=== PATIENT | female | born 1960 | race Two or more races ===

== ENCOUNTER 2017-06-09 08:40 | Emergency (ER) | payer OTHER ==
[2017-06-09 08:46] VITALS: BP 145/104
[2017-06-09] MEDS ORDERED: IBUPROFEN 600 MG TAB PO ONE (08:50)
--- NOTE | 2017-06-09 08:55 | EDPHY ---
H & P Stated Complaint: [place]ati "pop' to left knee last night while dancing. Time Seen by Provider: 06/09/17 08:54 HPI/ROS: HPI: This is a 57-year-old female who presents with Chief Complaint: [place]ati "pop' to left knee last night while dancing. Location: Left knee Quality: Injury Duration: Last night Signs and Symptoms: No bleeding, no radiation, no numbness, no weakness, no tingling, no incontinence, no decreased range of motion, no swelling, no pain, no fever Timing:acute, constant, worse with movement Severity: 09/03 Context: Patient reports that she had a history of Stubbs cyst as well with what appears to be a meniscus tear status post arthroscopy greater than 10 years ago presents to the emergency room with complaints of left lateral knee injury last night while dancing. She reports that while she was dancing she felt a pop while twisting her lower leg. Patient reports that she has seen Dr. Jamison earlier this year regarding chronic knee pain. It was recommended at that time that she had repeat arthroscopy. She is unsure of the exact diagnosis but believes that she has continued ACL or meniscus derangement. Patient reports that her knee is swollen with decreased range of motion. Pain is described as constant, moderate intensity, nonradiating. Worse with flexion. Denies paresthesias/weakness. Modifying Factors: [id number] pain medications, mild relief Comment: ROS: see HPI Constitutional: No fever, no chills, no weight loss Eyes: No blurred vision Respiratory: No shortness of breath, no cough Cardiovascular: No chest pain Gastrointestinal: No nausea, no vomiting no diarrhea Genitourinary: No dysuria Extremities: No myalgias Neurologic: No weakness, no numbness Skin: No rashes Hematologic: No bruising, no bleeding MEDICAL/SURGICAL/SOCIAL HISTORY: Medical/surgical history: Multiple skin allergies, , left knee, cholecystectomy, hernia repair, hypertension Social history: CONSTITUTIONAL: Extremely pleasant but uncomfortable adult female, at bedside, awake and alert, no obvious distress HEENT: Atraumatic and normocephalic. NECK: supple, no midline tenderness Cardiovascular: Normal S1/S2, regular rate, regular rhythm, without murmur rub or gallop. PULMONARY/CHEST: Symmetrical and nontender. no crepitus. Clear to auscultation bilaterally. Good air movement. No accessory muscle usage. ABDOMEN: Soft, nondistended, nontender, no ecchymosis. EXTREMITIES: 2/2 pulses, strength 5/5, left KNEE: Jsqn-dl-ksavqmkl suprapatellar effusion, no medial joint line tenderness, moderate lateral joint line tenderness medial and lateral joint line tenderness, extension to 120, flexion to 80. Moderate pain with valgus exam. Mild pain with varus exam. Moderate pain with anterior drawer or posterior drawer test. good light touch sensation. no deformities, no clubbing, no cyanosis or edema. NEUROLOGICAL: no focal neuro deficits. GCS 15. Light touch sensation intact. SKIN: Warm and dry, no erythema. no rash. Good capillary refill. Source: Patient Exam Limitations: No limitations - Personal History Current Tetanus Diphtheria and Acellular Pertussis (TDAP): Yes - Medical/Surgical History Hx Asthma: No Hx Chronic Respiratory Disease: No Hx Diabetes: No Hx Cardiac Disease: No Hx Renal Disease: No Hx Cirrhosis: No Hx Alcoholism: No Hx HIV/AIDS: No Hx Splenectomy or Spleen Trauma: No Other PMH: Multipal skin allergies, , left knee, cholecystectomy, hernia repair, HTN - Social History Smoking Status: Former smoker Constitutional: Initial Vital Signs Temperature (C) 36.6 C 06/09/17 08:40 Heart Rate 78 06/09/17 08:40 Respiratory Rate 18 06/09/17 08:40 Blood Pressure 145/104 H 06/09/17 08:40 O2 Sat (%) 98 06/09/17 08:40 O2 Delivery Mode Room Air Allergies/Adverse Reactions: penicillin G [Penicillin G] Allergy (Unknown, Verified 12/23/09 18:48) Rash tetracycline [Tetracycline] Allergy (Unknown, Verified 12/23/09 18:48) Rash Home Medications: Medication Instructions Recorded oxyCODONE/APAP 5/325 [Percocet 1 - 2 tab PO Q4H PRN #10 tab 06/09/17 5/325 (*)] Medical Decision Making - Diagnostics Imaging Results: Imaging Impressions Knee X-Ray 06/09/17 08:50 Impression: Mild degenerative changes with a small joint effusion, but no acute osseous abnormality. If there is further clinical concern regarding the patient's symptoms, MR imaging could be scheduled. Procedures: Procedure: Splint placement. A left knee immobilizer was applied by the Emergency Room freezer laboratory technician. After application of the splint I returned and re-examined the patient. The splint was adequately immobilizing the joint and distal to the splint the patient's circulation and sensation was intact. ED Course/Re-evaluation: Patient given ibuprofen and Percocet upon arrival with adequate relief of pain No signs of neurovascular compromise/tenting of skin/compartment syndrome/ extremities and joints examined above and below area of concern and are neurovascularly intact/septic arthritis/gouty arthropathy. Knee x-ray my read via PACs; joint space narrowing; mild degenerative changes; no fracture Left knee x-ray ordered; suspect internal derangement and will need MRI outpatient with orthopedic follow-up Placed in knee immobilizer and given crutches; toe-touch weight-bearing status to start This patient was seen under the supervision of my secondary supervising physician. I evaluated care for this patient independently. Discussed this patient with Dr. Rivero who did not see the patient. Differential Diagnosis: Knee injury while [] including but not limited to fracture, ACL injury, contusion, muscular strain, and meniscus injury. - Data Points Medications Given: Discontinued Medications Ibuprofen (Motrin) 600 mg PO EDNOW ONE Stop: 06/09/17 08:51 Last Admin: 06/09/17 08:54 Dose: 600 mg Oxycodone/Acetaminophen (Percocet 5/325) 1 tab PO EDNOW ONE Stop: 06/09/17 09:00 Last Admin: 06/09/17 09:05 Dose: 1 tab Departure - Departure Disposition: Home, Routine, Self-Care Clinical Impression: Internal derangement of left knee Condition: Good Instructions: Knee Sprain (ED), Knee Immobilizer (ED), R.I.C.E. Treatment (ED) Additional Instructions: Wear the knee immobilizer while out of bed. Use crutches to aid ambulation; start with toe-touch weight-bearing status on left lower extremity. Take Tylenol 650 mg every 4 hours and/or Ibuprofen 600 mg every 8 hours with food as needed for pain. Use Percocet every 6 hours as needed for severe/break through pain. Do not use Tylenol and Percocet concomitantly. Apply ice for 30 minutes at a time; 2-3 times per day for the next 1-2 days. Follow up with Orthopedics in 5-7 days at which time they will evaluate and recommend with you if conservative management versus further imaging with MRI versus surgery is indicated. Return to the ER immediately if you experience new or worsening pain, discoloration, numbness, tingling, or any other symptoms that concern you. Referrals: Tarun Jamison MD [Primary Care Provider] - As per Instructions Stand Alone Forms: Work Excuse Prescriptions: oxyCODONE/APAP 5/325 [Percocet 5/325 (*)] 1 - 2 tab PO Q4H PRN #10 tab PRN Reason: Pain, Severe
[2017-06-09] MEDS ORDERED: OXYCODONE/APAP 5/325 TAB PO ONE (08:59)
== END 2017-06-09 09:30 | disposition home or self-care (01) ==
DX: M23.92 Unspecified internal derangement of left knee (principal); I10 Essential (primary) hypertension; Z87.891 Personal history of nicotine dependence; X50.9XXA Other and unspecified overexertion or strenuous movements or postures, initial encounter; Y99.8 Other external cause status; Y93.41 Activity, dancing
CPT/HCPCS: L1830

== ENCOUNTER 2017-11-05 12:52 | Emergency (ER) | payer MEDICAID, OTHER ==
[2017-11-05] MEDS ORDERED: methylPREDNISolone SOD SUCC 125 MG/2 ML VIAL IVP ONE (13:10)
[2017-11-05] MEDS ORDERED: RANITIDINE 50 MG/2 ML VIAL IVP ONE (13:10)
--- NOTE | 2017-11-05 13:10 | EDPHY ---
General - History Smoking Status: Former smoker Time Seen by Provider: 11/05/17 13:05 Narrative: CHIEF COMPLAINT: Allergic reaction HISTORY OF PRESENT ILLNESS: Patient presents by private vehicle with complaints of allergic reaction. She states that "a wasp or something" stung her on the left forearm. This happened within the past hour. Location is the left forearm, anterolaterally. She notes some pain, redness and swelling. It has increased. She is not taking medication for this. She is concerned because she has been stung by a wasp in the past, with moderate reaction. She does have some tingling of the tongue. No swelling of the lips or tongue. No difficulty breathing. No drooling. No chest pain or shortness of breath. The area on the form has increased in size since the innoculation. No other associated complaints or modifying factors. REVIEW OF SYSTEMS: 10 systems were reviewed and negative with the exception of the elements mentioned in the history of present illness. PCP: None SPECIALISTS: None PAST MEDICAL HISTORY: "Multiple allergies,"the hypertension PAST SURGICAL HISTORY: Hernia repair, orthopedic surgery, cholecystectomy, times with to SOCIAL HISTORY: Nonsmoker. Lives independently FAMILY HISTORY: Noncontributory EXAMINATION: General Appearance: Alert, no distress. Convulsing in full sentences Head: normocephalic, atraumatic Eyes: Pupils equal and round, no conjunctival pallor or injection ENT, Mouth: Mucous membranes moist. Airway is widely patent. There is no erythema or edema of the lips, tongue or posterior pharynx. No trismus. No drooling. Uvula is midline. Neck: Normal inspection, supple, non-tender Respiratory: Lungs are clear to auscultation Cardiovascular: Regular rate and rhythm Neurological: A&O, nonfocal, normal gait Skin: Warm and dry. There is an area of erythema and urticaria to the left lateral forearm somewhat anterior. It is measured approximately 4 x 6 cm. There is induration. There is no abscess or signs of secondary infection. No petechiae or purpura. No systemic rash. Extremities: Nontender, no pedal edema Psychiatric: Mood and affect normal DIFFERENTIAL DIAGNOSES: Including but not limited to anaphylaxis, urticaria, acute allergic reaction MDM: 1:10 p.m. Acute allergic reaction to suspected yellow jacket sting on the left forearm. Her airway is widely patent without any edema or evidence of airway compromise but she has previous systemic allergic reaction from this. I have ordered medications for this and will monitor closely. She is conversing in full sentences without difficulty. 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 1:40 p.m. Patient re-evaluated. She is somnolent but wakes easily. Her rash is significantly improved and left upper extremity. Airway remains patent. 2:00 p.m. Patient re-evaluated. She remains awake alert. Rash is significantly improved. Airway remains patent. 2:30 p.m. Patient re-evaluated. She is conversing in full sentences. No drooling. Her airway is widely patent. No swelling of the lips or tongue. I do feel she is stable for discharge home. We discussed short course of antihistamines for the next few days and short course of steroid. I provided a prescription for epinephrine. Should this happen again, or she have acute worsening. We discussed close monitoring for the refractory. 6-8 hours. We discussed follow up primary care physician which we have provided for her. Discharged home stable condition SUPERVISION: This patient was independently evaluated without direct involvement of or examination by the attending physician. CONSULTATION: None (Demar Leone) Discussion: The patient was evaluated and managed by the Physician Medical Record Retrieval Specialist. My co- signature indicates that I have reviewed this chart and I agree with the findings and plan of care as documented. I am the secondary supervising physician. (Rebekah Penaloza) - Objective Vital Signs: Initial Vital Signs Temperature (C) 36.8 C 11/05/17 12:58 Heart Rate 80 11/05/17 12:58 Respiratory Rate 17 11/05/17 12:58 Blood Pressure 136/113 H 11/05/17 12:58 O2 Sat (%) 96 11/05/17 12:58 O2 Delivery Mode Room Air Allergies/Adverse Reactions: penicillin G [Penicillin G] Allergy (Unknown, Verified 11/05/17 12:57) Rash tetracycline [Tetracycline] Allergy (Unknown, Verified 11/05/17 12:57) Rash Home Medications: Medication Instructions Recorded EPINEPHrine [Epipen 0.3 MG] 0.3 mg IM ONCE #2 syr 11/05/17 predniSONE [Deltasone] 60 mg PO DAILY #6 tablet 11/05/17 Medications Given: Discontinued Medications Diphenhydramine HCl (Benadryl Injection) 50 mg IVP EDNOW ONE Stop: 11/05/17 13:11 Last Admin: 11/05/17 13:17 Dose: 50 mg Sodium Chloride (Ns) 1,000 mls @ 0 mls/hr IV EDNOW ONE; Wide Open PRN Reason: Protocol Stop: 11/05/17 13:12 Last Admin: 11/05/17 13:16 Dose: 1,000 mls Methylprednisolone Sodium Succinate (Solu-Medrol) 125 mg IVP EDNOW ONE Stop: 11/05/17 13:11 Last Admin: 11/05/17 13:17 Dose: 125 mg Ranitidine HCl (Zantac) 50 mg IVP EDNOW ONE Stop: 11/05/17 13:11 Last Admin: 11/05/17 13:17 Dose: 50 mg Departure - Departure Disposition: Home, Routine, Self-Care Clinical Impression: Urticaria Allergic reaction Qualifiers: Encounter type: initial encounter Qualified Code(s): T78.40XA - Allergy, unspecified, initial encounter Condition: Good Instructions: Urticaria (ED), Anaphylaxis (ED), General Allergic Reaction (ED) Additional Instructions: 1. Steroid prescription as discussed tomorrow and 2. Benadryl 25 mg every 6-8 hours as needed for itching 3. Zyrtec aovy-sqa-ghirckg, 1 pill by mouth once daily for 3 days 4. ED precautions for any swelling of the lips or tongue, difficulty in swallowing, increasing rash Referrals: Tacho Art MD [Medical Doctor] - As per Instructions Prescriptions: EPINEPHrine [Epipen 0.3 MG] 0.3 mg IM ONCE #2 syr predniSONE [Deltasone] 60 mg PO DAILY #6 tablet
[2017-11-05] MEDS ORDERED: NS 1,000 ML IV ONE (13:11)
[2017-11-05 14:07] VITALS: BP 139/87
[2017-11-05] MEDS ORDERED: methylPREDNISolone SOD SUCC 125 MG/2 ML VIAL ONE (19:26)
[2017-11-05] MEDS ORDERED: RANITIDINE 50 MG/2 ML VIAL ONE (19:26)
== END 2017-11-05 14:58 | disposition home or self-care (01) ==
DX: T63.441A Toxic effect of venom of bees, accidental (unintentional), initial encounter (principal); L50.0 Allergic urticaria; E86.9 Volume depletion, unspecified; Z87.891 Personal history of nicotine dependence
CPT/HCPCS: 96374; J1200; J2780; J2930

== ENCOUNTER → 2017-12-30 | Outpatient (CLI) | payer MEDICAID | LOC: FIMAGING 13:13 | PROVIDERS: ATTEND Family Medicine | DX: M79.672 Pain in left foot (principal); M25.572 Pain in left ankle and joints of left foot; M25.562 Pain in left knee ==

== ENCOUNTER 2018-04-01 07:53 | Day surgery (SDC) | payer MEDICAID ==
[2018-04-01] MEDS ORDERED: BUPIVACAINE/EPI 0.5% 30 ML SDV ONE (08:03)
[2018-04-01] MEDS ORDERED: LIDO/EPI 1% **Not for Epidural 20 ML MDV ONE (08:03)
[2018-04-01] MEDS ORDERED: LR 1,000 ML IV ONE (08:42)
--- NOTE | 2018-04-01 09:09 | PDHPUP ---
History & Physical Update H&P update statement: This history and physical update is based on an assessment of the patient which was completed after admission or registration (within 24 hours), but prior to the surgery/procedure. H&P update: H&P reviewed & patient examined, no change in patient's condition since H&P completed
--- NOTE | 2018-04-01 09:10 | POSTOPPROG ---
Post Op Note Date of Operation: 04/01/18 Surgeon: Jamel Mills Final Block Press Operator: Padmini Fajardo Anesthesia: IV Sedation Pre-op Diagnosis: Incisional hernia Post-op Diagnosis: Same Procedure: Incisional hernia repair Inf/Abcess present in the surg proc area at time of surgery?: No EBL: Minimal Specimen(s): no immediate
--- NOTE | 2018-04-01 09:18 | PDANEPAE ---
ANE History of Present Illness umbilical hernia here for open repair ANE Past Medical History - Cardiovascular History Hx Hypertension: No Hx Arrhythmias: No Hx Chest Pain: No Hx Coronary Artery / Peripheral Vascular Disease: No Hx CHF / Valvular Disease: No Hx Palpitations: No - Pulmonary History Hx COPD: No Hx Asthma/Reactive Airway Disease: No Hx Recent Upper Respiratory Infection: No Hx Oxygen in Use at Home: No Hx Sleep Apnea: No - Neurologic History Hx Cerebrovascular Accident: No - Endocrine History Hx Diabetes: No - Renal History Hx Renal Disorders: No - Liver History Hx Hepatic Disorders: No - Neurological & Psychiatric Hx Hx Neurological and Psychiatric Disorders: No - Cancer History Hx Cancer: No - Congenital Disorder History Hx Congenital Disorders: No - GI History Hx Gastrointestinal Disorders: No - Other Health History Other Health History: none - Surgical History Prior Surgeries: L Knee meniscus. c section. choley. umbilical hernia repair ANE Review of Systems Review of Systems: - Exercise capacity METS (RN): 4 METS ANE Patient History - Allergies Allergies/Adverse Reactions: penicillin G [Penicillin G] Allergy (Unknown, Verified 11/05/17 12:57) Rash tetracycline [Tetracycline] Allergy (Unknown, Verified 11/05/17 12:57) Rash YELLOW JACKET VENOM Allergy (Uncoded 03/26/18 16:28) Tingling of mouth/throat - Home Medications Home medications: home medication list seen and reviewed - NPO status NPO Status: no food or drink >8 hours NPO Since - Liquids (Date): 04/01/18 NPO Since - Liquids (Time): 06:00 NPO Since - Solids (Date): 03/31/18 NPO Since - Solids (Time): 20:00 - Anes Hx Anes Hx: no prior problems - Smoking Hx Smoking Status: Former smoker - Alcohol Use Alcohol Use: Rarely - Family Anes Hx Family Anes Hx: none Family Hx Anesthesia Complications: none ANE Labs/Vital Signs - Vital Signs Blood Pressure: 147/90 Heart Rate: 69 Respiratory Rate: 14 O2 Sat (%): 97 Height: 154.94 cm Weight: 63.503 kg ANE Physical Exam - Airway Neck exam: FROM Mallampati Score: Class 2 Mouth exam: normal dental/mouth exam - Pulmonary Pulmonary: no respiratory distress, clear to auscultation - Cardiovascular Cardiovascular: regular rate and rhythym, no murmur, rub, or gallop - ASA Status ASA Status: II ANE Anesthesia Plan Anesthesia Plan: GA with mask Total IV Anesthesia: Yes
[2018-04-01] MEDS ORDERED: PROPOFOL/EMULSION 500 MG/50 ML BOTTLE IV ONE (09:22)
[2018-04-01] MEDS ORDERED: MIDAZOLAM 2 MG/2 ML VIAL ONE (09:30)
[2018-04-01] MEDS ORDERED: fentaNYL 100 MCG/2 ML INJ ONE (10:09)
[2018-04-01] MEDS ORDERED: oxyCODONE IR 5 MG TAB PO PRN (10:26)
[2018-04-01] MEDS ORDERED: ACETAMINOPHEN 500 MG TAB PO PRN (10:26)
[2018-04-01] MEDS ORDERED: fentaNYL 100 MCG/2 ML INJ IVP PRN (10:26)
[2018-04-01] MEDS ORDERED: NALOXONE HCL 0.4 MG/ML INJ IVP PRN (10:26)
[2018-04-01] MEDS ORDERED: HYDROCODONE/APAP 5/325 TAB PO PRN (10:26)
[2018-04-01] MEDS ORDERED: ONDANSETRON 4 MG/2 ML VIAL IVP PRN (10:26)
--- NOTE | 2018-04-01 10:29 | POSTANESTH ---
Post Anesthetic Evaluation Cardiovascular Status: Normal, Stable, Similar to Pre-Op Cond Respiratory Status: Normal, Stable, Similar to Pre-op Cond. Level of Consciousness/Mental Status: Moderately Sleepy Pain Control: Adequate, Prn Tx Ordered Nausea/Vomiting Control: Adequate, Prn Tx Ordered Complications Possibly Related to Anesthesia: None Noted
--- NOTE | 2018-04-01 10:42 | GOP ---
[f rep st] OPERATIVE REPORT DATE OF OPERATION: 04/01/2018 SURGEON: Jamel Mills MD STRATEGY SPECIALIST: Padmini Fajardo PA-C. ANESTHESIA: MAC. ANESTHESIOLOGIST: Dr. Mcclure. PREOPERATIVE DIAGNOSIS: Incisional hernia. POSTOPERATIVE DIAGNOSIS: Incisional hernia. PROCEDURE PERFORMED: Incisional herniorrhaphy with 1.7-inch Ventralex mesh. FINDINGS: See below. INDICATIONS: 58-year-old female with a symptomatic incisional hernia. She is undergoing surgical repair at this time. Risks and benefits were explained, including bleeding, infection, recurrence, as well as bowel injury. All questions were answered. She desires to proceed. A surgical dressing maker is standard, necessary, and customary for the safe performance of this procedure. DESCRIPTION OF PROCEDURE: Monitored anesthesia was started. The abdomen was pre-injected with 0.5% Marcaine with epinephrine and 1% lidocaine. A curvilinear infraumbilical incision was reopened and extended. The 2 cm defect with incarcerated preperitoneal fat was identified. The fat was excised and cleared back to healthy-appearing fascial edges. The fascia was notably thin and attenuated. A 1.7-inch Ventralex mesh was inserted subfascially and the defect closed transversely with a running Vicryl suture. Satisfactory hemostasis was assured. The wound was closed in layers with absorbable sutures followed by Dermabond. The patient was taken to the recovery room uneventfully. /[id number]/MODL MTDD
[2018-04-01] MEDS ORDERED: oxyCODONE IR 5 MG TAB ONE (11:06)
[2018-04-01 12:25] VITALS: BP 115/80
== END 2018-04-01 12:36 | disposition home or self-care (01) ==
LOC: FSGY 07:53
PROVIDERS: ATTEND Surgery
PROC: 0WUF0JZ Supplement Abdominal Wall with Synthetic Substitute, Open Approach (ICD-10-PCS; principal; 2018-04-01 09:30)
DX: K43.2 Incisional hernia without obstruction or gangrene (principal); Z87.891 Personal history of nicotine dependence; Z96.651 Presence of right artificial knee joint; Z88.0 Allergy status to penicillin
CPT/HCPCS: C1781; J2250; J2704; J3010

== ENCOUNTER 2018-05-31 10:02 | Emergency (ER) | payer MEDICAID ==
[2018-05-31 10:15] VITALS: BP 131/92
--- NOTE | 2018-05-31 10:54 | EDPHY ---
General Time Seen by Provider: 05/31/18 10:53 Narrative: CLINICAL IMPRESSION: Right ankle sprain ASSESSMENT/PLAN: Patient is a 58-year-old female with no significant medical history who presents to the emergency department with right ankle pain after an injury sustained last evening. Patient is mildly uncomfortable appearing however not toxic-appearing. Physical examination reveals generalized edema overlying the right lateral malleolus with tenderness to palpation inferior to the lateral malleolus. 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 The patient is not tender at this location, I do not feel that this is associated to her injury today. History of physical examination is consistent with a right ankle sprained, no findings to suggest fracture, dislocation, septic joint, compartment syndrome or neurovascular compromise. The patient was given ibuprofen, she will continue Tylenol and ibuprofen as needed at home. The patient was placed in an Ronald wrap and Aircast, she was unable to bear weight so she will continue using her own crutches as needed. She is well established with her primary care provider, I also provided an orthopedic referral as needed. Return precautions discussed-patient will return for significantly worsening or uncontrolled pain, significant swelling, numbness or tingling of the extremity or for any other concerning symptom. Patient verbalized understanding and she is in agreement with this plan. DIFFERENTIAL DX: Differential diagnosis including but not limited to and in no particular order sprain, fracture, dislocation, compartment syndrome, septic joint ED PROCEDURES: Procedure: Splint placement. An Aircast splint was applied. After application of the splint I returned and re-examined the patient. The Aircast was adequately immobilizing the ankle and the patient's circulation and sensation was intact. ED COURSE: 1107: X-rays reviewed with the Dr. Farrar. Specifically reviewed the osteochondral tibial plafond and lesion. CHIEF COMPLAINT: Right ankle pain HPI: Patient is a 58-year-old female with no significant medical history who presents to the emergency department after rolling her ankle last evening. Patient reports she was stepping out of an elevator which had approximately a 1 in limp, she caught her foot causing her to roll her ankle. She immediately experienced pain along the outer portion of her right ankle. She was able to ambulate with a limp. Patient woke up this morning and was unable to bear weight secondary to pain, she has been using her own crutches. She denies any knee pain, calf pain or foot pain. She denies any numbness or tingling of the extremity. She denies any injury or previous surgery to this ankle. PAST MEDICAL HISTORY: Denies Family History: Not contributory Social History: Former smoker, denies illicit drug use ROS: A full 10 point review of systems was negative except for those mentioned in HPI. PHYSICAL EXAM: General Appearance: Alert, mildly uncomfortable appearing however not toxic- appearing. HENT: Normocephalic, atraumatic. External ears are normal. Nares are clear, mucosa is pink. Oropharynx is clear. Dentition is normal. Eyes: PERRLA, EOMI. Conjunctiva pink, no pallor or injection. Neck: Supple, nontender, no lymphadenopathy, no midline pain, FROM. Respiratory: There are no retractions, lungs are clear to auscultation. Cardiac: Regular rate and rhythm, no murmurs or gallops. Gastrointestinal: Abdomen is soft, nontender, bowel sounds normal, no masses/ hernia, no rigidity, guarding or focal peritoneal findings. Skin: Warm, dry, no rashes, no nodules on palpation. Upper Extremities: Intact distal pulses, Full range of motion intact, no tenderness, no ecchymosis or edema Lower Extremities: Left lower extremity is unremarkable. Intact distal pulses, No edema, No tenderness, No cyanosis, full range of motion intact, No calf tenderness bilaterally. Right knee nontender with full range of motion, there is no tenderness at the proximal fibular head. Patient has tenderness overlying the lateral malleolus and inferior to the malleolus. She has no medial malleolar tenderness or navicular tenderness. She has no tenderness at the base of 5th metatarsal or 1st webspace. Limited range of motion secondary to pain. Two point discrimination is intact distally. 2+ dorsalis pedis bilaterally. MEDICAL DECISION MAKING: Patient was seen independently. Secondary supervising physician at time of evaluation was Dr. Farrar, he did not evaluate this patient. Diagnosis: Right ankle sprain. New, requires workup Summary: See Assessment and Plan for summary of ED visit Clinical lab tests: Not applicable. Independent visualization of images, tracing, or specimens: Yes. Decision to obtain medical records or history from someone other than the patient: No Review / Summarize previous medical records: Yes Discussed patient with another provider: Yes, Dr. Farrar Patient Progress: Stable, discharged. - History Smoking Status: Former smoker - Objective Vital Signs: Initial Vital Signs Temperature (C) 36.8 C 05/31/18 10:11 Heart Rate 64 05/31/18 10:11 Respiratory Rate 16 05/31/18 10:11 Blood Pressure 131/92 H 05/31/18 10:11 O2 Sat (%) 97 05/31/18 10:11 O2 Delivery Mode Room Air Allergies/Adverse Reactions: penicillin G [Penicillin G] Allergy (Unknown, Verified 11/05/17 12:57) Rash tetracycline [Tetracycline] Allergy (Unknown, Verified 11/05/17 12:57) Rash YELLOW JACKET VENOM Allergy (Uncoded 03/26/18 16:28) Tingling of mouth/throat Home Medications: Medication Instructions Recorded EPINEPHrine [Epipen 0.3 MG] 0.3 mg IM ONCE #2 syr 11/05/17 predniSONE [Deltasone] 60 mg PO DAILY #6 tablet 11/05/17 Medications Given: Discontinued Medications Ibuprofen (Motrin) 400 mg PO EDNOW ONE Stop: 05/31/18 11:06 Last Admin: 05/31/18 11:18 Dose: 400 mg Departure - Departure Disposition: Home, Routine, Self-Care Clinical Impression: Ankle sprain Condition: Good Instructions: Ankle Sprain (ED) Additional Instructions: DISCHARGE INSTRUCTIONS FROM YOUR DOCTOR Thank you for visiting our emergency department today. Please keep in mind that discharge from the emergency department does not mean that there is nothing wrong - it simply means that we have not identified an emergency condition that requires further evaluation or treatment in the hospital. You should always plan to follow up with primary care for re-evaluation of your condition in the next 2-3 days. If you have been referred to a specialist, please call as soon as possible ( today or tomorrow) to schedule your follow up appointment at the appropriate time; follow-up with Orthopedic surgery if your symptoms are not improving in 5- 7 days. Rest, ice (on and off), elevate the foot and ankle as much possible above the level of the heart to decrease pain and swelling. Wear the Ronald for compression and splint for comfort. Ambulate as tolerated. Crutches as needed. For pain, Ibuprofen 400 mg every 6 hours. Do not exceed 2400 mg of ibuprofen in 24 hours. Stop taking this if it upsets her stomach. Tylenol 500 mg every 6 hours. Do not exceed 3000 mg in a 24-hour period. Continue your regular medications as prescribed. Return for increased pain or swelling, numbness, tingling or foot or toes, calf pain, paleness or coolness of the foot or toes or for any worsening or worrisome symptoms. People present with illnesses and injuries in different ways, and it is always possible that we have missed something. You may always return for re-evaluation if symptoms worsen or if they are not improving or if you develop new/different symptoms. Again, thank you for choosing our emergency department. We hope that you feel better. Referrals: Raoul Wilson MD [Medical Doctor] - As per Instructions (Please establish care with a primary care provider if you do not already have 1. ) Yamile Duke MD [Medical Doctor] - 5-7 days, if not improved
[2018-05-31] MEDS ORDERED: IBUPROFEN 200 MG TAB PO ONE (11:05)
== END 2018-05-31 11:32 | disposition home or self-care (01) ==
DX: S93.401A Sprain of unspecified ligament of right ankle, initial encounter (principal); W18.40XA Slipping, tripping and stumbling without falling, unspecified, initial encounter; Y92.89 Other specified places as the place of occurrence of the external cause; Y93.9 Activity, unspecified; Y99.9 Unspecified external cause status
CPT/HCPCS: L4350